=== PATIENT | female | born 1990 | race African-American/Black ===

== ENCOUNTER 2017-11-19 17:57 | Emergency (ER) | payer MEDICAID, SELFPAY ==
[~2017-11-19] VITALS: Ht 162.6 cm; Wt 61.0 kg
[2017-11-20 01:05] VITALS: BP 125/62
== END 2017-11-20 01:15 | disposition home or self-care (01) ==
LOC: ER 17:57
DX: S56.911A Strain of unspecified muscles, fascia and tendons at forearm level, right arm, initial encounter (principal); S63.501A Unspecified sprain of right wrist, initial encounter; V49.09XA Driver injured in collision with other motor vehicles in nontraffic accident, initial encounter; Y93.89 Activity, other specified; Y92.89 Other specified places as the place of occurrence of the external cause; Y99.8 Other external cause status
CPT/HCPCS: 29125; 73090; 99284; A4565